=== PATIENT | female | born 1945 | race Caucasian/White ===

== ENCOUNTER 2024-07-11 17:58 | Emergency (ER) | payer SELFPAY ==
[~2024-07-11] VITALS: Ht 157.5 cm; Wt 70.0 kg
[2024-07-11 18:13] VITALS: O2SAT 94
[2024-07-11 19:54] LABS: CHLORIDE 105 mEq/L (98-107); POTASSIUM 4.9 mEq/L (3.5-5.1); SODIUM 145 mEq/L (136-145)
[2024-07-11 19:55] LABS: CARBON DIOXIDE 27 mEq/L (21-32)
[2024-07-11 19:56] LABS: CALCIUM 9.9 mg/dL (8.7-10.4)
[2024-07-11 20:00] LABS: CREATININE 1.4 mg/dL (0.6-1.0)
[2024-07-11 20:01] LABS: ETHANOL BLOOD < 10 mg/dL (<10); GLUCOSE 130 mg/dL (70-105); UREA NITROGEN BLOOD 32 mg/dL (9-23)
[2024-07-11 20:02] LABS: AMMONIA < 17 uMol/L (<32); TROPONIN I HIGH SENSITIVITY 5 ng/L (3.0-34)
[2024-07-11 20:06] LABS: BASOPHILS % 0.2 % (0.0-2.0); EOSINOPHILS % 0.7 % (0.0-5.0); HEMATOCRIT. 35.9 % (36.0-48.0); HEMOGLOBIN. 11.6 g/dL (12.0-16.0); LYMPHOCYTES % 26.2 % (20.0-50.0); MEAN CORPUSCULAR HEMOGLOBIN 28.8 pg (28.0-32.0); MEAN CORPUSCULAR HGB CONC 32.5 g/dL (31.0-37.0); MEAN CORPUSCULAR VOLUME 88.8 fL (81.0-99.0); MEAN PLATELET VOLUME 10.6 fl (7.4-10.4); MONOCYTES % 8.8 % (2.0-8.0); NEUTROPHILS % 64.1 % (40.0-76.0); PLATELET 192 x1000/uL (130-400); RED BLOOD CELL COUNT 4.04 mill/uL (4.2-5.4); RED CELL DISTRIBUTION WIDTH 15.9 % (11.6-14.6); WHITE BLOOD COUNT 5.4 x1000/uL (4.5-11.0)
[2024-07-11 21:47] LABS: CLARITY URINE CLEAR (CLEAR); COLOR URINE YELLOW (YELLOW); GLUCOSE URINE NEGATIVE (NEGATIVE); KETONES URINE NEGATIVE (NEGATIVE); LEUKOCYTE ESTERASE URINE NEGATIVE (NEGATIVE); NITRITE URINE NEGATIVE (NEGATIVE); OCCULT BLOOD URINE NEGATIVE (NEGATIVE); PROTEIN URINE TRACE (NEGATIVE); SPECIFIC GRAVITY URINE 1.018 (1.005-1.030)
[2024-07-11 22:01] LABS: *AMPHETAMINES SCREEN URINE NEGATIVE (NEGATIVE); *BARBITURATES SCREEN URINE NEGATIVE (NEGATIVE); *BENZODIAZEPINES SCREEN URINE NEGATIVE (NEGATIVE); *COCAINE SCREEN URINE NEGATIVE (NEGATIVE)
[2024-07-11 22:02] LABS: CANNABINOID URINE SCREEN NEGATIVE (NEGATIVE); ECSTASY MDMA SCREEN URINE NEGATIVE (NEGATIVE); METHADONE URINE SCREEN NEGATIVE (NEGATIVE); OPIATES URINE SCREEN NEGATIVE (NEGATIVE); PHENCYCLIDINE URINE SCREEN NEGATIVE (NEGATIVE)
[2024-07-11 22:14] LABS: BACTERIA URINE 1+; RBC URINE 0-2 /hpf (0-2); SQUAMOUS EPITHELIAL CELL URINE FEW /lpf (RARE/1+); WBC URINE 0-2 /hpf (0-2)
[2024-07-11] MEDS ORDERED: ASPI-1497 MT (22:15)
[2024-07-11 22:35] VITALS: BP 154/55; PULSE 71; RESP 18; TEMP 36.2; O2SAT 94
== END 2024-07-11 22:36 | disposition home or self-care (01) ==
LOC: ER 17:58
DX: M54.9 Dorsalgia, unspecified (principal); Z79.82 Long term (current) use of aspirin
CPT/HCPCS: 36415; 71045; 80048; 80305; 80320; 81003; 82140; 84484; 85025; 93005; 99285; A4606; G0480

== ENCOUNTER 2025-01-28 22:25 | Emergency (ER) | payer MEDICARE, OTHER ==
[~2025-01-28] VITALS: Ht 167.6 cm; Wt 64.0 kg
[~2025-01-28 22:25] MED LIST: ASPI-1497 MT; PANT40TA51 PO
[2025-01-28 22:29] VITALS: O2SAT 100
[2025-01-28] MEDS: SODIUM CHLORIDE 0.9% 1,000 ML IV ONE (22:53)
[2025-01-28] MEDS: LEVETIRACETAM 1000MG PREMIX 100 ML IV ONE (22:54)
[2025-01-28] MEDS: LORAZEPAM 2MG/ML UD SYRINGE IV SCH (22:54)
[2025-01-28 23:12] LABS: BASOPHILS % 0.6 % (0.0-2.0); EOSINOPHILS % 2.4 % (0.0-5.0); HEMATOCRIT. 33.7 % (36.0-48.0); HEMOGLOBIN. 10.7 g/dL (12.0-16.0); LYMPHOCYTES % 31.5 % (20.0-50.0); MEAN PLATELET VOLUME 9.8 fl (7.4-10.4); MONOCYTES % 6.2 % (2.0-8.0); NEUTROPHILS % 59.3 % (40.0-76.0); PLATELET 176 x1000/uL (130-400); RED BLOOD CELL COUNT 3.85 mill/uL (4.2-5.4); RED CELL DISTRIBUTION WIDTH 15.6 % (11.6-14.6)
[2025-01-28 23:23] LABS: CREATININE 1.4 mg/dL (0.6-1.0); UREA NITROGEN BLOOD 23 mg/dL (9-23)
[2025-01-28 23:24] LABS: TROPONIN I HIGH SENSITIVITY 8 ng/L (3.0-34)
[2025-01-28 23:25] LABS: ASPARTATE AMINOTRANSFERASE 17 IU/L (<34); BILIRUBIN DIRECT 0.1 mg/dL (<=3.0)
[2025-01-28 23:26] LABS: BILIRUBIN TOTAL 0.6 mg/dL (0.1-1.0); PROTEIN TOTAL 7.0 g/dL (6.0-8.3)
[2025-01-29 01:00] VITALS: BP 149/49; PULSE 61; RESP 16; TEMP 36.7; O2SAT 98
== END 2025-01-29 01:25 | disposition home or self-care (01) ==
LOC: ER 22:25 → CMPBEDREQ 01-30 10:47
DX: G40.909 Epilepsy, unspecified, not intractable, without status epilepticus (principal); I10 Essential (primary) hypertension; R06.02 Shortness of breath; E78.5 Hyperlipidemia, unspecified; E11.9 Type 2 diabetes mellitus without complications; F03.90 Unspecified dementia, unspecified severity, without behavioral disturbance, psychotic disturbance, mood disturbance, and anxiety; Z79.82 Long term (current) use of aspirin; Z86.73 Personal history of transient ischemic attack (TIA), and cerebral infarction without residual deficits
CPT/HCPCS: 80076; 80048; 80320; 82962; 83880; 83735; 85025; 84484; 36415; 93005; 96374; 96375; 99284; J1953; J2060; J7030; A4615; G0480